=== PATIENT | male | born 1940 | race Caucasian/White ===

== ENCOUNTER 2020-12-16 14:19 | Emergency (ER) | payer OTHER ==
[~2020-12-16] VITALS: Ht 182.9 cm; Wt 92.1 kg
[~2020-12-16 14:19] MED LIST: ADVAIR HFA 230M12 GM INH; AMOXICILLIN 50500 MG PO; ASPIR 8181 MG PO; ASPIRIN325 PO; ASPIRIN81 M2 PO; B-121000 MC2 PO; CARVEDILOL12.5 MG PO; COZAAR 50 MG TA50 M2 PO; COZAAR100 MG PO; FISH OIL 1,001000 M2 PO; GLUCOSAMINE HC500 MG PO; IMDUR 30 MG TAB30 M1 PO; KLOR-CON 1010 MEQ PO; LASIX 40 MG TAB40 M2 PO; MAGNESIUM OXID400 MG PO; NORVASC5 MG PO; PLAVIX 75 MG TA75 M1 PO; VENTOLIN HFA 1818 GM INH; VITAMIN D2000 UNIT PO; ZETIA10 MG PO
[2020-12-16] MEDS ORDERED: LIPITOR40 MG PO (14:29)
[2020-12-16] MEDS ORDERED: NAMENDA 10 MG T10 MG PO (14:30)
[2020-12-16] MEDS ORDERED: CO Q-1030 MG PO (14:30)
[2020-12-16 15:18] LABS: ABSOLUTE EOSINOPHILS 0.2 thou/uL (0.0-0.7); ABSOLUTE LYMPHOCYTES 0.7 thou/uL (0.8-5.3); ABSOLUTE MONOCYTES 0.6 thou/uL (0.0-1.2); ABSOLUTE NEUTROPHILS 4.5 thou/uL (1.6-8.1); BASOPHILS 0.6 %; EOSINOPHILS 2.5 %; HEMOGLOBIN 12.1 gm/dL (14.0-18.0); LYMPHOCYTES 12.4 %; MCH 29.7 pg (26.0-34.0); MCHC 34.7 g/dL (28.0-37.0); MCV 85.6 fL (80.0-100.0); MONOCYTES 10.2 %; NUCLEATED RBCS 0 /100WBC; PLATELET COUNT* 252 thou/uL (150-400); POLYS 74.3 %; RBC 4.09 mil/uL (4.50-6.00); RDW-CV 13.7 % (10.5-14.5)
[2020-12-16 15:28] LABS: CALCIUM 9.1 mg/dL (8.5-10.1); CREATININE 1.2 mg/dL (0.6-1.3); POTASSIUM 3.9 mmol/L (3.5-5.1)
[2020-12-16 15:42] LABS: CK-MB MASS 0.9 ng/mL (<0.5-3.6); MAGNESIUM 2.1 mg/dL (1.8-2.4); TOTAL BILIRUBIN 0.3 mg/dL (<0.1-1.0); TOTAL PROTEIN 7.8 g/dL (6.4-8.2)
[2020-12-16] MEDS ORDERED: HYDROCODON-ACE1 EAC7 PO (15:44)
[2020-12-16] MEDS ORDERED: FLEXERIL PO (15:44)
--- NOTE | 2020-12-16 15:51 | EKG ---
[place] [address] ELECTROCARDIOGRAM REPORT Name: DASRHANA GARCIA Room: [facility]#: [id number] Admission: 12/16/20 Attend Phys: Discharge: Date of : 42 Date of Service: 12/16/20 1421 Report #: [id number] THIS REPORT FOR: //name// [facility] ED Test Date: 2020-12-16 Test Time: 14:21:30 Pat Name: DARSHANA GARCIA Department: Room: Gender: [employer] Inspector: [facility] [place] : 1940 Requested By: Corbin Cortes Order Number: [id number] MD: Eleno Walker Measurements Intervals Snyder Rate: 66 P: 18 WA: 288 QRS: 8 QRSD: 160 T: 39 QT: 447 QTc: 469 Interpretive Statements 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
[2020-12-16 16:02] VITALS: BP 159/74
== END 2020-12-16 16:02 | disposition home or self-care (01) ==
LOC: M.ERS 14:19
PROVIDERS: Family Medicine
DX: M43.6 Torticollis (principal); I11.0 Hypertensive heart disease with heart failure; I50.9 Heart failure, unspecified; J45.909 Unspecified asthma, uncomplicated; Z88.5 Allergy status to narcotic agent; Z79.899 Other long term (current) drug therapy